=== PATIENT | female | born 1995 | race Caucasian/White ===

== ENCOUNTER 2016-08-20 07:25 | Emergency (ER) | payer OTHER ==
[2016-08-20 07:33] VITALS: BP 123/75; PULSE 85; TEMP 98; BMI 21.5
[2016-08-20] MEDS ORDERED: diazePAM 5 MG TABLET PO ONE (08:09)
[2016-08-20] MEDS ORDERED: ACETAMINOPHEN 325 MG TABLET (FP) PO ONE (08:10)
[2016-08-20] MEDS ORDERED: OXYCODONE/APAP 5/325MG COMBO TABLET PO ONE (08:10)
[2016-08-20] MEDS ORDERED: ACETAMINOPHEN 325 MG TABLET (FP) ONE (08:35)
[2016-08-20] MEDS ORDERED: diazePAM 5 MG TABLET ONE (08:36)
[2016-08-20] MEDS ORDERED: OXYCODONE/APAP 5/325MG COMBO TABLET ONE (08:36)
--- NOTE | 2016-08-20 08:49 | PDOC ---
History of Present Illness - General Chief Complaint: Pain, Acute Stated Complaint: ARM AND NECK PAIN Time Seen by Provider: 08/20/16 07:40 History Source: Patient Exam Limitations: No Limitations - History of Present Illness Initial Comments: 08/20/16 08:05 21-year-old female presents to the emergency department with complaints of left- sided neck pain that radiates to her left shoulder and left upper back since awakening this morning. Patient states when she woke up to feed her child a bottle and lay back down after reaching for it she felt a sharp pain to the left side of her neck. Patient states tried to lay down but the pain increased and now is causing her to hold her head in the same position to alleviate discomfort. Patient denies previous symptoms. Patient denies posterior neck pain , headache, chest pain, shortness of breath, or sensory changes distal of affected area. Timing/Duration: 1-3 hours Severity: moderate Associated Symptoms: reports: denies symptoms Past History - Past Medical History Allergies/Adverse Reactions: Allergies Allergy/AdvReac Type Severity Reaction Status Date / Time No Known Allergies Allergy Verified 08/20/16 07:27 Home Medications: Ambulatory Orders NK [No Known Home Medication] 03/25/15 Asthma: No Cancer: No Cardiac Disorders: No Diabetes: No HTN: No Seizures: No Thyroid Disease: No Other medical history: DENIES - Psycho/Social/Smoking Cessation Hx Anxiety: No Suicidal Ideation: No Smoking History: Never smoked Have you smoked in the past 12 months: No Information on smoking cessation initiated: No Hx Alcohol Use: No Drug/Substance Use Hx: No Substance Use Type: None Hx Substance Use Treatment: No Patient Lives Alone: No Lives with/in: parents Review of Systems - Review of Systems Able to Perform ROS?: Yes Constitutional: No: Symptoms Reported HEENTM: No: Symptoms Reported Respiratory: No: Symptoms reported Cardiac (ROS): No: Symptoms Reported Musculoskeletal: Yes: Back Pain, Muscle Pain, Neck Pain Integumentary: No: Symptoms Reported Neurological: No: Symptoms reported Endocrine: No: Symptoms Reported *Physical Exam - Vital Signs Last Vital Signs Temp Pulse Resp BP Pulse Ox 98.0 F 85 18 123/75 100 08/20/16 07:28 08/20/16 07:28 08/20/16 07:28 08/20/16 07:28 08/20/16 07:28 - Physical Exam General Appearance: Yes: Nourished, Appropriately Dressed. No: Apparent Distress HEENT: positive: EOMI, SARAI. negative: Pale Conjunctivae Neck: positive: Normal Thyroid, Supple, Decreased range of motion (chin tilted towards the right and right shoulder lifted upward), Tender lateral (left SCM). negative: Tender midline Respiratory/Chest: positive: Lungs Clear, Normal Breath Sounds. negative: Respiratory Distress, Accessory Muscle Use Cardiovascular: positive: Regular Rhythm, Regular Rate. negative: Murmur Gastrointestinal/Abdominal: positive: Soft. negative: Tenderness Extremity: positive: Normal Capillary Refill, Normal Range of Motion (left arm) Integumentary: positive: Normal Color, Warm, Moist Neurologic: positive: Motor Strength 5/5 (ambulatory) ED Treatment Course - ADDITIONAL ORDERS Additional order review: Laboratory Results 08/20/16 07:55 Urine HCG, Qual Negative Medical Decision Making - Medical Decision Making 08/20/16 08:09 Patient awoke with left neck pain clinically presents as acquired torticollis. Patient ordered for urine and will be given and Percocet and Valium. Will reevaluate 08/20/16 09:12 patient states feeling much better and able to move her neck slightly but still with motor range of motion. Patient will be discharged home with NSAIDs and muscle relaxants with supportive care instructions. *DC/Admit/Observation/Transfer Diagnosis at time of Disposition: Spasmodic torticollis - Discharge Dispostion Disposition: HOME Condition at time of disposition: Improved - Referrals Referrals: Norman Diamond [Primary Care Provider] - - Patient Instructions Printed Discharge Instructions: DI for Torticollis Additional Instructions: I recommend you take the Valium twice a day for the next 4-5 days. Please take Motrin 600 mg every 8 hours for the next 4-5 days also. While taking this medication your unable to operate any heavy machinery. Use of pillows on both sides of the neck while sitting
== END 2016-08-20 09:20 | disposition home or self-care (01) ==
LOC: JER 07:25
DX: G24.3 Spasmodic torticollis (principal)
CPT/HCPCS: 84703; 99282-25

== ENCOUNTER 2017-05-20 20:24 | Emergency (ER) | payer OTHER ==
[2017-05-20 20:30] VITALS: BP 108/61; PULSE 111; TEMP 98.8; BMI 22.6
--- NOTE | 2017-05-20 21:25 | PDOC ---
History of Present Illness - General Chief Complaint: Ear Problem Stated Complaint: EAR PROBLEM Time Seen by Provider: 05/20/17 21:16 History Source: Patient Exam Limitations: No Limitations - History of Present Illness Initial Comments: 05/20/17 21:21 c/o right side earache for 2 days no fever no sore throat Past History - Past Medical History Allergies/Adverse Reactions: Allergies Allergy/AdvReac Type Severity Reaction Status Date / Time No Known Allergies Allergy Verified 05/20/17 20:27 Home Medications: Ambulatory Orders Amoxicillin - [Amoxicillin 500mg Capsule -] 500 mg PO TID #21 capsule 05/20/17 Asthma: No Cancer: No Cardiac Disorders: No Diabetes: No HTN: No Seizures: No Thyroid Disease: No - Suicide/Smoking/Psychosocial Hx Smoking History: Never smoked Have you smoked in the past 12 months: No Hx Alcohol Use: No Drug/Substance Use Hx: No Substance Use Type: None Hx Substance Use Treatment: No Review of Systems - Review of Systems Able to Perform ROS?: Yes Is the patient limited Khmer proficient: No Constitutional: No: Symptoms Reported HEENTM: Yes: Symptoms Reported *Physical Exam - Vital Signs Last Vital Signs Temp Pulse Resp BP Pulse Ox 98.8 F 111 H 18 108/61 99 05/20/17 20:28 05/20/17 20:28 05/20/17 20:28 05/20/17 20:28 05/20/17 20:28 - Physical Exam General Appearance: Yes: Nourished, Appropriately Dressed HEENT: positive: EOMI, SARAI, TM Bulging, TM Dull (right ), TM Erythema Neck: positive: Supple Respiratory/Chest: positive: Lungs Clear, Normal Breath Sounds Cardiovascular: positive: Regular Rhythm, Regular Rate Musculoskeletal: positive: Normal Inspection Medical Decision Making - Medical Decision Making 05/20/17 21:22 cc: pain right ear for one day getting worse afebrile non toxic neg mastoid tenderness exam consistent with AOM *DC/Admit/Observation/Transfer Diagnosis at time of Disposition: Otitis media - Discharge Dispostion Disposition: HOME Condition at time of disposition: Good - Prescriptions Prescriptions: Amoxicillin - [Amoxicillin 500mg Capsule -] 500 mg PO TID #21 capsule - Referrals Referrals: Norman Diamond [Primary Care Provider] - Augustin Ryder MD [Staff Physician] - - Patient Instructions Additional Instructions: take motrin (ibuprofen, advil) 600mg every 6hrs for pain also get sudafed (decongestant) will help with congestion take amoxicllin as directed for [address] [facility] ENT if any worsening symptoms
== END 2017-05-20 21:32 | disposition home or self-care (01) ==
LOC: JERFT 20:24
DX: H66.91 Otitis media, unspecified, right ear (principal)
CPT/HCPCS: 99281-25

== ENCOUNTER 2018-07-11 18:40 | Emergency (ER) | payer OTHER ==
[2018-07-11 18:43] VITALS: BP 122/76; PULSE 84; TEMP 98; BMI 24.7
--- NOTE | 2018-07-11 19:24 | PDOC ---
Attending Attestation - HPI HPI: 07/11/18 20:42 The patient is a 23 year old female who is , 6 weeks who presents to the ED with bilateral lower abdominal pain for the past several days. Reports a sharp, intermittent pain lasting about 3 minutes and is worse when ambulating. She additionally reports she was diagnosed with chlamydia recently, but denies any vaginal discharge or bleeding. Denies any fevers, chills, nausea , vomiting, diarrhea, cough, SOB, CP, or urinary complaints. - Medical Decision Making 07/11/18 20:42 Documentation prepared by Allyson Rooney, acting as product manager medical device for Tatyana Avila MD. <Allyson Rooney - Last Filed: 07/11/18 20:42> - Resident Resident Name: Gema Harmon - ED Attending Attestation I have performed the following: I have examined & evaluated the patient, The case was reviewed & discussed with the resident, I agree w/resident's findings & plan - Physicial Exam PE: 07/11/18 22:39 Pt has a normal vag exam. SPeculum exam and bimanual. Minimal left adnexal tenderness. - Medical Decision Making 07/11/18 21:06 Pt has a beta HCG of 19K. Vag exam was normal; no CMT and no blood and no discharge. She will be sent for pelvic sono to r/o ectopic. 07/11/18 22:38 Pt will be treated for a UTI 07/12/18 00:02 Patient Name: JAQUELINE COATS THIS IS A PRELIMINARY REPORT FROM [facility] DATE OF SERVICE: 2018-07-11 21:53:44 IMAGES: 67 EXAM: Ultrasound OB less than 14 weeks transabdominal and ultrasound OB less than 14 weeks transvaginal and ultrasound color duplex HISTORY: 23-year-old female confirm intrauterine COMPARISON: None. FINDINGS: Within the endometrium there is a gestational sac yolk sac and pole. heart motion 125 bpm. [place]-rump length measurement equals 6 weeks 2 days. Estimated date of delivery March 05, 2019. The uterus measures 10 x 5.5 x 6.5 cm. There is no evidence of myometrial masses. The right ovary measures 3.5 x 1.8 x 2 cm. There are no right ovarian masses. The left ovary measures 3 x 2.5 x 3.1 cm. Left ovary 1.5 x 1.1 x 1.1 cm cystic process most likely represents a corpus luteal cyst. There is no free fluid in the pelvis. COLOR DUPLEX: There is satisfactory perfusion to both the left and right ovary with normal appearing arterial and venous spectral waveforms. IMPRESSION: No evidence of ovarian torsion. Single living intrauterine fetus estimated gestational age 6 weeks 2 days. <Tatyana Avila - Last Filed: 07/12/18 00:03>
[2018-07-11 19:59] LABS: URINE APPEARANCE SLCLOUDY; URINE BILIRUBIN NEGATIVE (<2.0 mg/dL); URINE COLOR STRAW; URINE GLUCOSE (UA) NEGATIVE (NEGATIVE); URINE KETONE NEGATIVE (NEGATIVE); URINE LEUK ESTERASE 2+ (NEGATIVE); URINE NITRITE NEGATIVE (NEGATIVE); URINE PROTEIN NEGATIVE (NEGATIVE); URINE UROBILINOGEN NEGATIVE mg/dL (0.2-1.0)
--- NOTE | 2018-07-11 20:03 | PDOC ---
History of Present Illness - History of Present Illness Initial Comments: Evie Austin is a 23yo otherwise healthy woman at 6wks by LMP who presents reporting b/l lower abdominal pain for the last several days. She states that the pain is sharp and lasts approximately 3 minutes at a time. It occurs on both side of her lower abdomen. The pain occurs every 30 minutes when she is still or laying down, somewhat more frequently when she is active. Ms Austin is additionally concerned because she had a previous miscarriage. She also reports that she was diagnosed with gonorrhea/chlamydia about a month ago. She states that she and her sexual partner were both treated, but she continues to be concerned that she may be infected. She denies any unusual vaginal discharge, fevers, or chills. She says that when she was initially diagnosed, her presenting symptom was dysuria, which has since resolved. Ms Austin has set up care with an OB but will not be seen until 07/28 for her first appointment. <Gema Harmon - Last Filed: 07/11/18 22:41> <Tatyana Avila - Last Filed: 07/12/18 00:02> - General Chief Complaint: Pain Stated Complaint: STOMACH PAIN/8 WKS Time Seen by Provider: 07/11/18 19:02 Past History - Past Medical History Asthma: No Cancer: No Cardiac Disorders: No COPD: No Diabetes: No HTN: No Seizures: No Thyroid Disease: No - Suicide/Smoking/Psychosocial Hx Smoking History: Never smoked Have you smoked in the past 12 months: No Hx Alcohol Use: No Drug/Substance Use Hx: No Substance Use Type: None Hx Substance Use Treatment: No <Gema Harmon - Last Filed: 07/11/18 22:41> <Tatyana Avila - Last Filed: 07/12/18 00:02> - Past Medical History Allergies/Adverse Reactions: Allergies Allergy/AdvReac Type Severity Reaction Status Date / Time No Known Allergies Allergy Verified 07/11/18 18:43 Home Medications: Ambulatory Orders Nitrofurantoin Monohyd/M-Cryst [Macrobid -] 100 mg PO BID #14 capsule 07/11/18 Review of Systems - Review of Systems Comments:: General: No fevers, no chills, no weight or appetite change, no malaise HEENT: No changes in vision, no changes in hearing, no congestion, no sore throat CV: No chest pain, no palpitations, no LE edema Pulm: No SOB, no cough, no wheezing GI: No nausea or vomiting, no change in bowel habits, no melena : No frequency, no urgency, no dysuria Musc: No back pain, no joint swelling, no recent injury Skin: No rash, no lesions, no erythema Endo: No excessive thirst, no heat/cold intolerance Heme: No unusual bruising or bleeding, no swollen glands Neuro: No syncope, no numbness/tingling, no focal weakness Vasc: No claudication Psych: No recent change in mood, no SI or HI <Gema Harmon - Last Filed: 07/11/18 22:41> *Physical Exam - Vital Signs Last Vital Signs Temp Pulse Resp BP Pulse Ox 98 F 84 18 122/76 99 07/11/18 18:40 12 18:40 12 18:40 07/11/18 18:40 07/11/18 18:40 - Physical Exam Comments: General: Comfortable, no acute distress HEENT: PERRL, EOMI, MMM, voice normal, normal neck ROM Cards: RRR, no murmur appreciated Pulm: Comfortable on room air, clear to auscultation bilaterally Abd: Soft, nontender, nondistended : No CVA tenderness. Pelvic exam with normal external genitalia; vaginal canal without abnormalities, abrasions, or Ext: Atraumatic. No LE edema. ROM intact. Strength 5/5 and equal bilaterally Vasc: Extremities WWP. Palpable radial and pedal pulses bilaterally Skin: Normal color, no rashes or lesions Neuro: A&Ox3, CN grossly intact, normal speech, motor/sensory grossly intact and symmetric Psych: Mood appropriate to situation <Gema Harmon - Last Filed: 07/11/18 22:41> - Vital Signs Last Vital Signs Temp Pulse Resp BP Pulse Ox 98 F 84 18 122/76 99 07/11/18 18:40 12 18:40 12 18:40 12 18:40 07/11/18 18:40 <Tatyana Avila - Last Filed: 07/12/18 00:02> Moderate Sedation - Procedure Monitoring Vital Signs: Procedure Monitoring Vital Signs Temperature 98 F 07/11/18 18:40 Pulse Rate 84 07/11/18 18:40 Respiratory Rate 18 07/11/18 18:40 Blood Pressure 122/76 07/11/18 18:40 O2 Sat by Pulse Oximetry (%) 99 07/11/18 18:40 <Gema Harmon - Last Filed: 07/11/18 22:41> - Procedure Monitoring Vital Signs: Procedure Monitoring Vital Signs Temperature 98 F 07/11/18 18:40 Pulse Rate 84 07/11/18 18:40 Respiratory Rate 18 07/11/18 18:40 Blood Pressure 122/76 07/11/18 18:40 O2 Sat by Pulse Oximetry (%) 99 07/11/18 18:40 <Tatyana Avila - Last Filed: 07/12/18 00:02> ED Treatment Course - ADDITIONAL ORDERS Additional order review: Laboratory Results 07/11/18 07/11/18 19:30 19:30 Beta HCG, Quant 60527.6 Urine Color Straw Urine Appearance Slcloudy Urine pH 6.0 Ur Specific [place] 1.004 L Urine Protein Negative Urine Glucose (UA) Negative Urine Ketones Negative Urine Blood Negative Urine Nitrite Negative Urine Bilirubin Negative Urine Urobilinogen Negative Ur Leukocyte Esterase 2+ H Urine WBC (Auto) 11 Urine RBC (Auto) 2 Ur Epithelial Cells Few Urine Bacteria Rare Urine HCG, Qual Positive - Medications Given in the ED: ED Medications Discontinued Medications Generic Name Dose Route Start Last Admin Trade Name Freq PRN Reason Stop Dose Admin Nitrofurantoin Macrocrystals 100 mg 07/11/18 22:30 07/11/18 22:42 Macrodantin - PO 100 mg ONCE MARKEL Administration <Tatyana Avila - Last Filed: 07/12/18 00:02> Medical Decision Making - Medical Decision Making 07/11/18 19:36 Evie Austin is a 23yo otherwise healthy woman at 6wks by LMP who presents reporting b/l lower abdominal pain for the last several days. - No vaginal bleeding or significant cramping concerning for threatened or inevitable - Unsure whether she is having dysuria; will send UA - Urine to verify pt's report of current . - bHCG to verify approximate gestational age - if high enough, will order transvaginal ultrasound to verify IUP and r/o ectopic - No pain or cervical motion tenderness on vaginal exam; reassuring that pt does not have PID. Also only normal physiologic discharge, no lesions, no other signs indicating infection 07/11/18 21:52 - [id number], consistent with stated gestational age - UA with 2+ leukocyte esterase, 11WBCs, 2RBCs, rare bacteria. As pt is , will likely require treatment for UTI 07/11/18 22:41 - US reviewed. Shows single IUP - Gestational age 6w2d by CRL and 6w0d by CW. FHR 117 and 124 on two measurements. - Discussed US results with Ms Norman. Discussed likely UTI; received one dose of macrobid in the ED and understands that she needs to continue taking macrobid at home. Will f/u with her OB at her already scheduled appointment. Seen and discussed with Dr Avila. Gema Harmon PGY1 <Gema Harmon - Last Filed: 07/11/18 22:41> *DC/Admit/Observation/Transfer <Gema Harmon - Last Filed: 07/11/18 22:41> <Tatyana Avila - Last Filed: 07/12/18 00:02> Diagnosis at time of Disposition: Abdominal pain during in first trimester - Discharge Dispostion Condition at time of disposition: Stable - Prescriptions Prescriptions: Nitrofurantoin Monohyd/M-Cryst [Macrobid -] 100 mg PO BID #14 capsule - Referrals Referrals: Norman Diamond [Primary Care Provider] - Boby Farris MD [Staff Physician] - - Patient Instructions Printed Discharge Instructions: DI for -- Discomforts and Remedies Additional Instructions: Discharge Instructions: You were seen in the emergency department with lower abdominal pain. You had a urine test that shows a likely urinary tract infection (UTI). Because you are , you have been prescribed a course of antibiotics for the UTI. You also had tests for gonorrhea and chlamydia sent to the lab; these results will not be back for a few days, but you will get a call if they are positive. While in the emergency department you had an ultrasound showing a single, uterine . It is still too early to determine many details on ultrasound, and you should still follow up with you religious studies professor. Home Care: - You may use acetaminophen (Tylenol) for pain during your . - Do NOT take medicatiosn such as ibuprofen (Motrin, Advil) or naproxen (Aleve) as these can be harmful in - Try using heat or cold packs to relieve your back or abdominal pain - Complete the antibiotics prescribed for your urinary tract infection. Even if you feel better, finish the entire prescription. Follow Up: - You will need to follow up with your religious studies professor. You reported that you have a scheduled appointment in about 2 weeks. If you need to establish care with an religious studies professor at [facility], you have been referred to Dr Farris. - Seek immediate medical care if you have any severe abdominal pain, significant vaginal bleeding, or any medical emergency such as chest pain, shortness of breath, or altered mental status (confusion). - Post Discharge Activity
[2018-07-11 20:17] LABS: HCG,QUALITATIVE URINE Positive
[2018-07-11 20:28] LABS: EPI CELLS FEW /HPF (FEW); URINE BACTERIA RARE /hpf (NONE SEEN)
[2018-07-11] MEDS ORDERED: NITROFURANTOIN MACROCRYSTAL 50 MG CAPSULE (FP) PO SCH (22:30)
[2018-07-11] MEDS ORDERED: NITROFURANTOIN MACROCRYSTAL 50 MG CAPSULE (FP) ONE (22:41)
== END 2018-07-11 23:00 | disposition home or self-care (01) ==
LOC: JER 18:40
DX: O26.891 Other specified pregnancy related conditions, first trimester (principal); O23.31 Infections of other parts of urinary tract in pregnancy, first trimester; Z3A.01 Less than 8 weeks gestation of pregnancy
CPT/HCPCS: 36415; 76817-TC; 81003; 81015; 84702; 84703; 87086; 87491; 87591; 99282-25

== ENCOUNTER 2018-11-03 18:12 | Emergency (ER) | payer OTHER ==
[2018-11-03 18:21] VITALS: BMI 29.9
--- NOTE | 2018-11-03 19:09 | PDOC ---
History of Present Illness - General Chief Complaint: Cold Symptoms Stated Complaint: 24 W PREG/RT EAR PAIN/COLD SYMPTOMS Time Seen by Provider: 11/03/18 18:55 - History of Present Illness Initial Comments: 11/03/18 19:07 23 y/o 24 week gravid F presents for evaluation of fever and nasal congestion 3 days she has no comorbidities Past History - Past Medical History Allergies/Adverse Reactions: Allergies Allergy/AdvReac Type Severity Reaction Status Date / Time No Known Allergies Allergy Verified 11/03/18 18:17 Home Medications: Ambulatory Orders Nitrofurantoin Monohyd/M-Cryst [Macrobid -] 100 mg PO BID #14 capsule 07/11/18 Asthma: No Cancer: No Cardiac Disorders: No COPD: No Diabetes: No HTN: No Seizures: No Thyroid Disease: No - Suicide/Smoking/Psychosocial Hx Smoking History: Never smoked Have you smoked in the past 12 months: No Hx Alcohol Use: No Drug/Substance Use Hx: No Substance Use Type: None Hx Substance Use Treatment: No Review of Systems - Review of Systems Constitutional: Yes: Fever HEENTM: Yes: Nose Congestion *Physical Exam - Vital Signs Last Vital Signs Temp Pulse Resp BP Pulse Ox 98.1 F 101 H 20 107/75 99 11/03/18 18:17 11/03/18 18:17 11/03/18 18:17 11/03/18 18:17 11/03/18 18:17 - Physical Exam Comments: 11/03/18 19:07 HEAD: NC/AT EYES: Conjuntiva clear Ears: Canals and TM's normal NOSE: No d/c THROAT: Moist mucous membrances, oral pharanx clear, uvula midline NECK: Supple without adenopathy CARDIAC: S1 S2 LUNGS: CTA Full and Equal breath sounds ABDOMEN: Soft NT ND MS: Full ROM in all joints without edema NEUROLOGIC: No gross sensory or motor deficits, NVID SKIN: Normal color and temperature no lesions or rashes Medical Decision Making - Medical Decision Making 11/03/18 19:08 Upper respiratory infection. She is out of the window for Tamiflu. I will send her up to [facility] for clearance *DC/Admit/Observation/Transfer Diagnosis at time of Disposition: Upper respiratory infection - Discharge Dispostion Disposition: HOME Condition at time of disposition: Stable Decision to Admit order: No - Referrals Referrals: Marcell West MD [Primary Care Provider] - - Patient Instructions Printed Discharge Instructions: DI for Viral Upper Respiratory Infection -- Adult Additional Instructions: Follow-up with your primary care physician in one to 2 days for further evaluation and treatment options report to labor and delivery for monitoring 40 go home today. Return to the emergency room for worsening symptoms. At this point you may only take Tylenol to control fever. No other medications - Post Discharge Activity
[2018-11-03 20:51] VITALS: BP 101/59; PULSE 105; TEMP 97.6
== END 2018-11-03 20:20 | disposition home or self-care (01) ==
LOC: JER 18:12 → JERFT 19:25 → JER 20:20
DX: O99.89 Other specified diseases and conditions complicating pregnancy, childbirth and the puerperium (principal); J06.9 Acute upper respiratory infection, unspecified; Z3A.24 24 weeks gestation of pregnancy
CPT/HCPCS: 99281-25